=== PATIENT | male | born 1955 | race Caucasian/White ===

== ENCOUNTER 2019-10-15 08:17 | Day surgery (SDC) | payer MEDICARE, OTHER ==
[~2019-10-15 08:17] MED LIST: Lactated Ringers 1,000 ML IV SCH; Lidocaine 1% 2 ML SDV ONE; Lidocaine 1%/Sod Bicarbonate in NS 8.4% 1 ML Syringe IDERM PRN; Propofol 200 MG/20 ML SDV ONE; Sodium Chloride 0.9% 10 ML Syringe FLUSH PRN; fentaNYL 100 MCG/2 ML SDV ONE
--- NOTE | 2019-10-15 08:50 | PCM.PREANE ---
Preanesthetic Assessment - Procedure Proposed Procedure: Screening Colonoscopy - Anesthesia/Transfusion/Family Hx Anesthesia History: Prior Anesthesia Without Reaction Family History of Anesthesia Reaction: No Transfusion History: No Prior Transfusion(s) Intubation History: Unknown - Review of Systems General: No Symptoms Pulmonary: No Symptoms (MAE-no CPAP at this time/Former smoker: quit 30 years ago, less than 1ppd less than 5 years./History of ETOH abuse quit 1991) Cardiovascular: Lightheadedness (positonal changes) Gastrointestinal: No Symptoms Neurological: No Symptoms (History of lower lumbar back pain/history of spine surgery 2003 (03/25 today for back pain)), Numbness (History of left leg numbess) Other: Reports: Easy Bleeding, Easy Bruising, Thyroid Problems (History of parathyroidectomy), Depression - Physical Assessment NPO Status Date: 10/15/19 NPO Status Time: 04:00 Vital Signs: HR: 84 B/P: 150/86 Sat: 97% Temp: 98.2 Resp: 16 Height: 1.75 m Weight: 94 kg ASA Class: 2 Mental Status: Alert & Oriented x3 Airway Class: Mallampati = 2 Dentition: Reports: Normal Dentition, [place]antado(s), Caries Thyro-Mental Finger Breadths: 3 Mouth Opening Finger Breadths: 3 ROM/Head Extension: Full Lungs: Clear to Auscultation, Normal Respiratory Effort Cardiovascular: Regular Rate, Regular Rhythm, No Murmurs - Lab Values: All labs reviewed and noted and within acceptable ranges to proceed with scheduled procedure. - Imaging/EKG Impressions: 02/2019: negative cardiolyte stess test] EKG: SR rate=75, Q waves in inferior leads Echocardiogram: 02/2019: EF= 55-60% - Allergies Allergies/Adverse Reactions: Allergies Allergy/AdvReac Type Severity Reaction Status Date / Time No Known Allergies Allergy Verified 10/14/19 15:00 - Anesthesia Plan Pre-Op Medication Ordered: None - Acknowledgements Anesthesia Type Planned: MAC Pt an Appropriate Candidate for the Planned Anesthesia: Yes Alternatives and Risks of Anesthesia Discussed w Pt/Guardian: Yes Pt/Guardian Understands and Agrees with Anesthesia Plan: Yes PreAnesthesia Questionnaire HEENT History: Reports: Allergic Rhinitis, Impaired Vision Cardiovascular History: Reports: High Cholesterol, Other (See Below) Other Cardiovascular History: abnormal EKG, chest pain Respiratory History: Reports: Sleep Apnea Gastrointestinal History: Reports: Colon Polyp, Other (See Below) Other Gastrointestinal History: gastric ulcer Genitourinary History: Reports: None REGULATOR TESTER History: Reports: None Musculoskeletal History: Reports: Back Pain, Chronic, Other (See Below) Other Musculoskeletal History: knee pain, right shoulder pain, arthritic bone disorder Neurological History: Reports: Other (See Below) Other Neuro History: left leg numbness Psychiatric History: Reports: Depression, Other (See Below) Other Psychiatric History: insomnia, ETOH abx Endocrine/Metabolic History: Reports: Hyperthyroidism, Vitamin D Deficiency Hematologic History: Reports: None Immunologic History: Reports: None Oncologic (Cancer) History: Reports: None Dermatologic History: Reports: Other (See Below) Other Dermatologic History: dermatitis - Infectious Disease History Infectious Disease History: Reports: None - Past Surgical History Head Surgeries/Procedures: Reports: None HEENT Surgical History: Reports: Naso-Sinus Surgery Cardiovascular Surgical History: Reports: None Respiratory Surgical History: Reports: None GI Surgical History: Reports: Cholecystectomy, Colonoscopy, EGD Female Surgical History: Reports: None Male Surgical History: Reports: None Endocrine Surgical History: Reports: Parathyroidectomy Neurological Surgical History: Reports: Other (See Below) Other Neurological Surgeries/Procedures: low back surgery Musculoskeletal Surgical History: Reports: Shoulder Surgery Oncologic Surgical History: Reports: None Dermatological Surgical History: Reports: None - SUBSTANCE USE Smoking Status *Q: Former Smoker Recreational Drug Use History: No - HOME MEDS Home Medications: Home Meds Ascorbic Acid [Vitamin C] 500 mg PO DAILY 12/26/18 [History] Aspirin [Lo-Dose Aspirin EC] 81 mg PO DAILY 12/26/18 [History] Cholecalciferol (Vitamin D3) [Vitamin D3] 4,000 unit PO DAILY 12/26/18 [History] Multivitamin [Daily Sherrell] 1 tab PO DAILY 12/26/18 [History] Rosuvastatin Calcium 40 mg PO DAILY 12/26/18 [History] Venlafaxine HCl [Venlafaxine ER] 150 mg PO DAILY 12/26/18 [History] Zolpidem Tartrate 10 mg PO BEDTIME PRN 12/26/18 [History] Calcium Carbonate [Calcium] 600 mg PO DAILY 10/14/19 [History] Meloxicam 15 mg PO DAILY 10/14/19 [History] - CURRENT (IN HOUSE) MEDS Current Meds: Current Medications Lactated Ringer's (Ringers, Lactated) 1,000 mls @ 125 mls/hr IV ASDIRECTED CRISTIAN Stop: 10/15/19 23:00 Lidocaine/Sodium Bicarbonate (Buffered Lidocaine 1% In Ns 8.4%) 0.25 ml IDERM ONETIME PRN PRN Reason: Prior to IV Start Stop: 10/15/19 18:00 Sodium Chloride (Saline Flush) 10 ml FLUSH ASDIRECTED PRN PRN Reason: Keep Vein Open Stop: 10/15/19 18:00 Discontinued Medications Fentanyl (Sublimaze) Confirm Administered Dose 100 mcg .ROUTE .STK-MED ONE Stop: 10/15/19 06:15 Lidocaine HCl (Lidocaine 1%) Confirm Administered Dose 4 ml .ROUTE .STK-MED ONE Stop: 10/15/19 06:14 Propofol (Diprivan 20 Ml) Confirm Administered Dose 400 mg .ROUTE .STK-MED ONE Stop: 10/15/19 06:14
[2019-10-15] MEDS ORDERED: fentaNYL 100 MCG/2 ML SDV ONE (11:49)
[2019-10-15] MEDS ORDERED: Lactated Ringers 1,000 ML ONE (12:50)
--- NOTE | 2019-10-15 13:20 | PCM48HPAN ---
Post Anesthesia Note - EVALUATION WITHIN 48HRS OF ANESTHETIC Vital Signs in Normal Range: Yes Patient Participated in Evaluation: Yes Respiratory Function Stable: Yes Airway Patent: Yes Cardiovascular Function Stable: Yes Hydration Status Stable: Yes Pain Control Satisfactory: Yes Nausea and Vomiting Control Satisfactory: Yes Mental Status Recovered: Yes Vital Signs: Last Vital Signs Temp 36.8 C 10/15/19 08:20 Pulse 84 10/15/19 08:20 Resp 16 10/15/19 08:20 BP 150/86 H 10/15/19 08:20 Pulse Ox 97 10/15/19 08:20
--- NOTE | 2019-10-15 13:45 | PCM.PRNOTE ---
- Free Text/Narrative Note: Date: 10/15/2019 Procedure: screening colonoscopy Endoscopist: Kee Quevedo MD Findings: so-so prep with fair amount of cloudy brown fluid and particulate matter. Ileocecal valve and appendiceal orifice visualized. Sigmoid diverticulosis. Mild hemorrhoidal disease. No polyps identified. Detailed Report: The patient was taken to the endoscopy suite and placed in left lateral decubitus position. Time out was performed and monitored anesthesia care initiated. Inspection of the anus revealed external hemorrhoidal skin tag. Digital exam was unremarkable. The colonoscope was inserted and advanced to the cecum with relative ease. The appendiceal orifice and ileocecal valve were seen. The prep was fair, but there was cloudy fluid and particulate matter throughout the colon making visualization suboptimal. Surfaces were irrigated, and the mucosa was carefully inspected on slow withdrawal of the scope. No polyps were identified. There was significant sigmoid diverticular disease. On retroflexion in the rectum, minor internal hemorrhoids were noted. Air was suctioned prior to removal of the scope. The patient tolerated the procedure well.
== END 2019-10-15 14:20 | disposition home or self-care (01) ==
LOC: JD.SDS 08:17
PROVIDERS: ATTEND Surgery
DX: Z12.11 Encounter for screening for malignant neoplasm of colon (principal); K57.30 Diverticulosis of large intestine without perforation or abscess without bleeding; K64.8 Other hemorrhoids; E78.00 Pure hypercholesterolemia, unspecified; G47.33 Obstructive sleep apnea (adult) (pediatric); E78.5 Hyperlipidemia, unspecified; F32.9 Major depressive disorder, single episode, unspecified; E05.90 Thyrotoxicosis, unspecified without thyrotoxic crisis or storm; Z87.891 Personal history of nicotine dependence; Z79.82 Long term (current) use of aspirin; Z79.899 Other long term (current) drug therapy; Z98.890 Other specified postprocedural states; Z86.010 Personal history of colon polyps
CPT/HCPCS: G0105; J2001; J2704; J3010; J7120; 00812

== ENCOUNTER 2022-06-08 12:35 | Emergency (ER) | payer MEDICARE, OTHER ==
[2022-06-08] MEDS ORDERED: levETIRAcetam 1,500 MG in Sodium Chloride 0.9% 100 ML IV ONE (13:32)
[2022-06-08] MEDS ORDERED: LORazepam 2 MG/ML SDV IVPUSH ONE (13:44)
[2022-06-08] MEDS ORDERED: hydrALAZINE 20 MG/ML SDV IVPUSH ONE (13:48)
[2022-06-08] MEDS: Labetalol 100 MG/20 ML MDV IVPUSH ONE ×2 (14:21→15:02)
[2022-06-08] MEDS ORDERED: Gadobenate Dimeglumine 529 MG/ML 20 ML SDV IVPUSH ONE (14:37)
[2022-06-08] MEDS ORDERED: Sodium Chloride 0.9% 10 ML Syringe FLUSH SCH (14:45)
== END 2022-06-08 18:13 ==
LOC: JD.ED 12:35
DX: R56.9 Unspecified convulsions (principal); G93.89 Other specified disorders of brain; E78.00 Pure hypercholesterolemia, unspecified; Z79.82 Long term (current) use of aspirin; Z79.899 Other long term (current) drug therapy
CPT/HCPCS: 36415; 70450; 70553; 80053; 84484; 85025; 85610; 93005; 96365; 96366; 96375; 96376; 99285; A9577; J0360; J1953; J2060; J3490; 93010